=== PATIENT | female | born 1975 | race Caucasian/White ===

== ENCOUNTER 2018-04-23 21:16 | Emergency (ER) | payer OTHER ==
[~2018-04-23] VITALS: Ht 170.2 cm; Wt 96.3 kg
[~2018-04-23 21:16] MED LIST: ATEN-100 PO; FLEX5TAB PO; IBUP800T23 PO; TOPA15CA PO; TRAM50 PO
[2018-04-23 21:29] VITALS: BP 161/102; PULSE 103; RESP 18; TEMP 98.3; O2SAT 97
[2018-04-23] MEDS ORDERED: TOPI100 PO (21:38)
[2018-04-23] MEDS ORDERED: CYCL10TA PO (21:38)
[2018-04-23] MEDS ORDERED: KETOROLAC TROMETHAMINE 60 MG/2 ML (IM) VIAL IM ONE (22:00)
--- NOTE | 2018-04-23 22:08 | PD ---
HPI Chief Complaint: left knee pain Time Seen by Provider: 21:39 Travel History International Travel<30 days: No Contact w/Intl Traveler<30days: No Traveled to known affect area: No History of Present Illness HPI 42yo F with no significant PMH presents to the ED with c/o left knee pain for 1 week. Pain is more lateral knee and worst with flexion when she is walking up stairs. Pain is better in extension. Denies any trauma, fever, chest pain, sob , n/v, abdominal pain, focal weakness or numbness. PFSH Past Medical History Heart Rhythm Problems: Yes Cardiac Catheterization: Yes (ABLATION) Cardiovascular Problems: Yes (HTN, TACHYCARIDA,ABLATION) Diminished Hearing: No Headaches: Yes Hypertension: Yes Immunizations Current: No Influenza Vaccination: Yes ?: Unknown LMP: 2 yrs Past Surgical History Abdominal Surgery: Yes (LAPAROSCOPY FOR HERNIA) Cardiac Surgery: Yes (CARDIAC ABLATION) Other Surgery: Yes (LEFT WRIST CYST REMOVED ) Social History Alcohol Use: No Tobacco Use: Yes (<1 ppd) Substance Use: No Allergies-Medications (Allergen,Severity, Reaction): Coded Allergies: No Known Allergies (Verified Adverse Reaction, Unknown, 04/23/18) Reported Meds & Prescriptions Reported Meds & Active Scripts Active Reported Topamax (Topiramate) 100 Mg Tab 100 Mg PO BID Flexeril (Cyclobenzaprine HCl) 10 Mg Tab 10 Mg PO TID Review of Systems Except as stated in HPI: all other systems reviewed are Neg Physical Exam Narrative GENERAL: 42yo F in mild distress. SKIN: Focused skin assessment warm/dry. HEAD: Atraumatic. Normocephalic. EYES: Pupils equal and round. No scleral icterus. No injection or drainage. ENT: No nasal bleeding or discharge. Mucous membranes pink and moist. NECK: Trachea midline. No JVD. CARDIOVASCULAR: Regular rate and rhythm. No murmur appreciated. RESPIRATORY: No accessory muscle use. Clear to auscultation. Breath sounds equal bilaterally. GASTROINTESTINAL: Abdomen soft, non-tender, nondistended. MUSCULOSKELETAL: LLE: +TTP lateral knee. No erythema or edema. Distal pulses intact. Sensation intact. FROM left ankle. Pt can fully flex and extend but pain with flexion. No ttp left hip. NEUROLOGICAL: Awake and alert. No obvious cranial nerve deficits. Motor grossly within normal limits. Normal speech. PSYCHIATRIC: Appropriate mood and affect; insight and judgment normal. Data Data Last Documented VS Vital Signs Date Time Temp Pulse Resp B/P (MAP) Pulse Ox O2 Delivery O2 Flow Rate FiO2 04/23/18 21:29 98.3 103 18 161/102 (121) 97 Orders Orders Knee, Ltd (1 Or 2vws) (04/23/18 ) Ketorolac Inj (Toradol Inj) (04/23/18 22:00) ^ Knee Immobilizer (04/23/18 23:17) [facility] Medical Decision Making Medical Screen Exam Complete: Yes Emergency Medical Condition: Yes Differential Diagnosis Ligamentous injury vs. fracture vs. osteoarthritis Narrative Course 42yo F with left knee for 1 week. Denies any trauma. No erythema, fever or signs of infection. Xray left knee showed osteoarthritis. No acute abnormality. Pt given toradol and she feels much better. Placed knee in knee immobilizer for comfort. Return precautions given. Diagnosis Primary Impression: Osteoarthritis Qualified Codes: M17.12 - Unilateral primary osteoarthritis, left knee Referrals: Maxi Porter MD as needed Patient Instructions: General Instructions Departure Forms: Tests/Procedures Additional Instructions: Please follow up with orthopedics as outpatient if pain persists. Return to the ED if symptoms worsen. Med/Other Pt SpecificInfo: Prescription(s) given Scripts Ibuprofen (Ibuprofen) 600 Mg Tab 600 MG PO Q8HR Y for PAIN, #20 TAB 0 Refills Prov: Tamara Vu DO 04/23/18 Disposition: 01 DISCHARGE HOME Condition: Stable Tamara Vu Apr 23, 2018 22:08
--- NOTE | 2018-04-23 22:27 | RADRPT ---
EXAM DATE: 04/23/2018 10:22 PM EDT AGE/SEX: 42 years / Female INDICATIONS: Left lateral knee pain for 1 week with no known injury CLINICAL DATA: This is the patient's initial encounter. Patient reports that signs and symptoms have been present for 1 week and indicates a pain score of 7/10. MEDICAL/SURGICAL HISTORY: None. None. COMPARISON: Left knee x-ray 06/26/2016 . FINDINGS: Mild medial joint space narrowing and mild periarticular sclerotic change. Mild lateral compartment o steoarthritis. No fracture or dislocation. No joint effusion. Soft tissues are unremarkable. CONCLUSION: Mild osteoarthritis. No acute abnormality. Electronically signed by: Bret Rich MD 04/23/2018 10:25 PM EDT
[2018-04-23 23:39] VITALS: BP 127/92; PULSE 91; RESP 18; O2SAT 98
[2018-04-23 23:40] VITALS: RESP 18
[2018-04-23] MEDS ORDERED: IBUP-232 PO (23:41)
== END 2018-04-23 23:48 | disposition home or self-care (01) ==
LOC: PHEFT 21:16
DX: M17.12 Unilateral primary osteoarthritis, left knee (principal); I10 Essential (primary) hypertension; F17.200 Nicotine dependence, unspecified, uncomplicated
CPT/HCPCS: 73560; 96372; 99283; J1885